=== PATIENT | female | born 1940 | race Caucasian/White ===

== ENCOUNTER 2019-11-09 11:13 | Emergency (ER) | payer MEDICARE, OTHER ==
--- NOTE | 2019-11-09 13:02 | EDM.PDOC ---
ED HPI GENERAL MEDICAL PROBLEM - General Chief Complaint: Eye Problems Stated Complaint: VISION PROBLEM Time Seen by Provider: 11/09/19 12:45 Source of Information: Reports: Patient History Limitations: Reports: No Limitations - History of Present Illness INITIAL COMMENTS - FREE TEXT/NARRATIVE: has floaters in the eyes usually but yesterday developed abnormal vision when she got up last a few minutes and then resolved then this am same symptoms , worse in the left eye did not resolved part of vision seemed cut off , had blurred vision that persisted till she got here and then still has floaters used genteel eye drops and Restasis this am with n relieve of symptoms called to PCP and was told a to come in to the ER Onset: Today Duration: Day(s): Location: Reports: Face Severity: Mild Improves with: Reports: Rest Worsens with: Reports: None Associated Symptoms: Reports: No Other Symptoms - Related Data Allergies Allergy/AdvReac Type Severity Reaction Status Date / Time SULFA Allergy Severe Rash Uncoded 06/23/15 08:16 Home Meds: Home Meds Carboxymethylcellulos/Glycerin [Refresh Optive] 1 drop EYEBOTH DAILY 06/20/15 [ History] Lutein 20 mg PO DAILY 06/20/15 [History] Metoprolol Succinate [Toprol XL] 50 mg PO DAILY 06/20/15 [History] Simvastatin 20 mg PO BEDTIME 06/20/15 [History] amLODIPine [Norvasc] 2.5 mg PO DAILY 06/20/15 [History] cycloSPORINE [Restasis] 1 drop EYEBOTH BID 06/20/15 [History] Cholecalciferol (Vitamin D3) [Vitamin D] 1 tab PO DAILY 11/09/19 [History] Cyanocobalamin (Vitamin B12) [Vitamin B12] 1 tab PO DAILY 11/09/19 [History] Pantoprazole Sodium [Protonix] 20 mg PO DAILY 11/09/19 [History] Past Medical History HEENT History: Reports: Impaired Vision Cardiovascular History: Reports: Hypertension 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 Denies: Ear Pain, Eye Discharge, Nose Pain, Vertigo Respiratory: Reports: No Symptoms Cardiovascular: Reports: No Symptoms Endocrine: Reports: No Symptoms GI/Abdominal: Reports: No Symptoms Musculoskeletal: Reports: No Symptoms Skin: Reports: No Symptoms Neurological: Reports: No Symptoms ED EXAM GENERAL W FULL EYE - Physical Exam Exam: See Below Exam Limited By: No Limitations General Appearance: Alert, WD/WN, No Apparent Distress Eye Exam: Bilateral Eye: EOMI (cataract in left eye noted) Eyelids: Right: Normal Appearance Conjunctiva & Sclera: Bilateral: Normal Appearance Extraocular Movements: Bilateral: Intact Ears: Normal External Exam Nose: Normal Inspection Throat/Mouth: Normal Inspection Head: Atraumatic, Normocephalic Neck: Supple, Non-Tender Respiratory/Chest: No Respiratory Distress Extremities: Normal Inspection Neurological: Alert, Oriented, CN II-XII Intact Psychiatric: Normal Affect Skin Exam: Warm Course - Vital Signs Last Recorded V/S: Last Vital Signs Temp 36.7 C 11/09/19 13:23 Pulse 82 11/09/19 13:23 Resp 18 11/09/19 13:23 BP 145/85 H 11/09/19 13:23 Pulse Ox 96 11/09/19 13:23 - Re-Assessments/Exams Free Text/Narrative Re-Assessment/Exam: 11/09/19 14:[address] done : results negative for any acute disorder Departure - Departure Time of Disposition: 14:15 Disposition: Home, Self-Care 01 Clinical Impression: Blurred vision, left eye, Cataract of left eye - Discharge Information *PRESCRIPTION DRUG MONITORING PROGRAM REVIEWED*: Not Applicable *COPY OF PRESCRIPTION DRUG MONITORING REPORT IN PATIENT AMBER: Not Applicable Instructions: Retinal Detachment, Visual Disturbances Referrals: Pietro Rivera MD [Primary Care Provider] - Forms: ED Department Discharge Additional Instructions: 1) make appointment to see environmental permitting specialist for further exam and evaluation of the left eye 2) Ok to continue with eye drops 3) Call PCP for further questions Sepsis Event Note - Focused Exam Vital Signs: Vital Signs Temp Pulse Resp BP Pulse Ox 11/09/19 13:23 36.7 C 82 18 145/85 H 96 Date Exam was Performed: 11/09/19 Time Exam was Performed: 14:09
[2019-11-09 13:29] VITALS: BP 145/85; PULSE 82
--- NOTE | 2019-11-09 13:46 | CT ---
INDICATION: Blurred vision left eye. Question CVA. CT HEAD WITHOUT CONTRAST: Spiral 3.75 mm axial sections were obtained through the brain without contrast with sagittal and coronal reconstructions 11/09/19 - no comparisons. Total exam DLP was 1244.99 mGy-cm. No cranial abnormality was identified. The orbits appear to be intact. Paranasal sinuses and mastoid air cells were well aerated. Minimal calcifications noted in the right vertebral and right internal carotid arteries. Asymmetrical temporal horn of the right lateral ventricle is noted on the right. There are some basal ganglia calcifications that most likely are not of clinical significance. Some tiny areas of decreased density in the left basal ganglia could represent very tiny lacunar infarcts. No shift of midline structures, ventricular abnormalities, or abnormal areas of density were otherwise suggested. There is some asymmetry in the lateral ventricles, left being larger than the right, most likely a normal variant. IMPRESSION: 1. No acute intracranial abnormality. 2. Cerebrovascular disease of mild degree. 3. Question minimal lacunar infarcts left basal ganglia. Report was called to Dr. Emery at approximately 1324 hours. [facility]
== END 2019-11-09 14:20 | disposition home or self-care (01) ==
LOC: FB.ED 11:13
DX: H26.9 Unspecified cataract (principal); H53.8 Other visual disturbances; I10 Essential (primary) hypertension; Z88.2 Allergy status to sulfonamides; Z79.899 Other long term (current) drug therapy
CPT/HCPCS: 70450; 99282; 99283-25